=== PATIENT | female | born 1980 | race Caucasian/White ===

== ENCOUNTER 2019-06-29 16:52 | Day surgery (SDC) | payer SELFPAY ==
[2019-06-29 17:25] VITALS: BP 107/61; TEMP 97.8; BMI 39.6
[2019-06-29] MEDS ORDERED: hydrALAZINE 20 MG/ML VIAL SLOW IVP PRN (18:19)
[2019-06-29 18:49] LABS: Bacteria/HPF None Seen HPF (None Seen); Bilirubin Negative (Negative); Blood, Urine Negative (Negative); Clarity Clear (Clear); Glucose, Urine (Dipstick) Normal (Negative); Leukocyte Negative Leu/uL (Negative); Nitrite Negative (Negative); Protein, Urine (Dipstick) Negative (Neg-Trace); RBC/HPF 0-3 HPF (0-3); Squamous Epithelial 0-3 HPF (0-3); Urobilinogen Normal mg/dL (Less than 2); WBC/HPF 0-3 HPF (0-3)
--- NOTE | 2019-06-29 19:03 | PRG ---
DATE OF SERVICE: 06/29/2019 PRIMARY OB: Garret Waldrop MD CHIEF COMPLAINT: Pelvic pain and vaginal discharge. HISTORY OF PRESENT ILLNESS: The patient is a 39-year-old G6, P2 female with an intrauterine at 27 weeks and 5 days presenting to Labor and Delivery with complaints of a mucousy discharge and crampiness that she has been feeling since about 2 o'clock this afternoon. She reports that the contractions have been about every 12 minutes apart feeling in the front and later on in the back also. She reports that this these pains are exacerbated with activity and movement such as getting up and getting out of the car, but she also reports that she is feeling these pains at rest. The patient denies any fever, cough, headache, chest pain, shortness of breath, nausea, vomiting, diarrhea, constipation, hip problems, knee problems, or muscle weakness. She denies any vaginal bleeding. Her leakage of fluid other than the mucousy discharge she had earlier today when she wiped and denies urinary urgency. The patient does report constipation on occasion. PAST MEDICAL HISTORY: 1. The patient has a history of grand mal seizures and has been off medications since the . 2. Asthma. Has required albuterol once this . PAST SURGICAL HISTORY: Cholecystectomy in 2017. SOCIAL HISTORY: Denies drug, alcohol, or tobacco use. She does report that she is a former alcoholic. ALLERGIES: PREDNISONE, BACTRIM. MEDICATIONS: 1. Albuterol inhaler p.r.n. 2. vitamins. She has stopped taking Keppra when she found out that she was . OB LABS: Unavailable at time of dictation. REVIEW OF SYSTEMS: Per HPI. PHYSICAL EXAMINATION: VITAL SIGNS: Blood pressure 107/61, heart rate of 75, respiratory rate 18, temperature 97.8. GENERAL: She appears to be in no acute distress. She is alert, oriented, cooperative, and pleasant to interact with. HEENT: Head is normocephalic and atraumatic. LUNGS: Clear to auscultation bilaterally. HEART: Has a regular rate and rhythm. ABDOMEN: Gravid and soft. PELVIC: She does have some tenderness in her left lower groin pelvic region with deviation of the uterus to the right. She also has some suprapubic tenderness also associated with palpation. Vulva is without masses, lesions, or erythema. Vagina is moist. Cervix is visibly closed. She has no evidence of pulling on Valsalva or cough. fibronectin and VP3 were collected. Cervix is closed digitally. heart tracing shows the fetus is at baseline in the 140s with moderate long-term variability, positive 15 x 15 accelerations. Tocometer shows maybe some irritability. Difficult to assess due to the patient's habitus. Pending is fibronectin, urinalysis, and VP3. ASSESSMENT AND PLAN: The patient is a 39-year-old female with an intrauterine at 27 weeks and 5 days with no evidence of labor at this time. Fetus has a category 1 tracing and reactive NST. We are awaiting lab results for possible urinary tract infection or vaginal infection. Anticipate a negative fibronectin. Once these results become available, treat accordingly and discharge home with instructions to follow up with her primary OB as scheduled. Job ID: [id number]
[2019-06-29 19:08] LABS: FFN Internal QC Analyzer PASS (PASS); FFN Internal QC Cassette PASS (PASS); Fetal Fibronectin Negative (Negative)
== END 2019-06-29 19:50 | disposition home or self-care (01) ==
LOC: L&D/OP 16:52
PROVIDERS: ATTEND Obstetrics & Gynecology
DX: O23.592 Infection of other part of genital tract in pregnancy, second trimester (principal); B96.89 Other specified bacterial agents as the cause of diseases classified elsewhere; O99.512 Diseases of the respiratory system complicating pregnancy, second trimester; J45.909 Unspecified asthma, uncomplicated; O99.352 Diseases of the nervous system complicating pregnancy, second trimester; G40.409 Other generalized epilepsy and epileptic syndromes, not intractable, without status epilepticus; O09.522 Supervision of elderly multigravida, second trimester; Z3A.27 27 weeks gestation of pregnancy; Z88.1 Allergy status to other antibiotic agents; Z88.2 Allergy status to sulfonamides; Z88.8 Allergy status to other drugs, medicaments and biological substances
CPT/HCPCS: 81001; 82731; 87480; 87510; 87660; 99285

== ENCOUNTER 2019-08-11 20:37 | Day surgery (SDC) | payer OTHER ==
[2019-08-11 21:07] VITALS: BMI 40.4
[2019-08-11] MEDS ORDERED: hydrALAZINE 20 MG/ML VIAL SLOW IVP PRN (22:46)
--- NOTE | 2019-08-11 22:48 | PDOC.LDHP ---
Labor and Delivery H&P Chief complaint: other (Low back pain) HPI: Patient of Dr Palma ULRICH 33 weeks 6 days Here for LBP, no UTI sxs, no CTX 39 yo [id number] at 33 weeks 6 days with above complaint. No LOF, no VB, also with some bilateral vaginal pressure. NO UTI sxs, no fevers. Review of Systems: complete ROS performed as as per HPI Current gestational age (weeks): 33 (6 days) Dating criteria: last menstrual period Grav: 6 Para: 2 OB History Details: HX "" delivery per record. Current complications: none Abnormal US findings: No Past Medical History: ASTHMA Current medications: pre- vitamins Previous surgical history: cholecystectomy Allergies/Adverse Reactions: Allergies Allergy/AdvReac Type Severity Reaction Status Date / Time prednisone Allergy Swollen Verified 06/29/19 17:17 Lips sulfamethoxazole Allergy Swollen Verified 06/29/19 17:17 [From Bactrim] Lips trimethoprim [From Bactrim] Allergy Swollen Verified 06/29/19 17:17 Lips Social history: none - Physical Exam Vital signs reviewed and normal: yes (124/72) General: NAD Heart: RRR Lungs: CTAB Abdomen: gravid Extremeties: no edema FHT: category 1 [place] contractions every: none - Assessment 33 weeks 6 days, AMA patient with no clinical sxs of true PTL. No UTI sxs - Plan Plan: observation in L&D (NST recative. Check CX. If no evidence labor, outpatient follow up allowed)
== END 2019-08-11 23:10 | disposition home or self-care (01) ==
LOC: L&D/OP 20:37
PROVIDERS: ATTEND Obstetrics & Gynecology
DX: O99.89 Other specified diseases and conditions complicating pregnancy, childbirth and the puerperium (principal); M54.5 Low back pain; R10.2 Pelvic and perineal pain; O99.513 Diseases of the respiratory system complicating pregnancy, third trimester; J45.909 Unspecified asthma, uncomplicated; O09.213 Supervision of pregnancy with history of pre-term labor, third trimester; O09.523 Supervision of elderly multigravida, third trimester; Z3A.33 33 weeks gestation of pregnancy; Z88.2 Allergy status to sulfonamides; Z88.8 Allergy status to other drugs, medicaments and biological substances

== ENCOUNTER 2019-08-22 20:53 | Day surgery (SDC) | payer OTHER ==
[2019-08-22 21:11] VITALS: BMI 41.5
[2019-08-22] MEDS ORDERED: hydrALAZINE 20 MG/ML VIAL SLOW IVP PRN (21:25)
--- NOTE | 2019-08-23 02:07 | SS ---
DATE OF ADMISSION: 08/22/2019 DATE OF DISCHARGE: 08/22/2019 REGULAR PHYSICIAN: Garret Waldrop MD EVALUATING PHYSICIAN: Daron Greene MD CHIEF COMPLAINT: Contractions. HISTORY OF PRESENT ILLNESS: Ms. Mortensen is a 39-year-old white G5, P2 with an estimated date of confinement of 09/23/2019, who presents complaining of contractions throughout the day. She denies ruptured membranes or vaginal bleeding. Her care has been with Dr. Waldrop, and history has been reportedly uncomplicated. PAST OBSTETRICAL HISTORY: Includes 2 vaginal deliveries, both at 36 to 37 weeks. PAST MEDICAL HISTORY: Includes seizure disorder. Last seizure over one year ago and asthma. PAST SURGICAL HISTORY: Cholecystectomy. CURRENT MEDICATIONS: vitamins. ALLERGIES: BACTRIM AND PREDNISONE. SOCIAL HISTORY: Denies tobacco, alcohol, or drug use. FAMILY HISTORY: Unremarkable. REVIEW OF SYSTEMS: Denies nausea, vomiting, fever, chills, ruptured membranes, or vaginal bleeding. PHYSICAL EXAMINATION: VITAL SIGNS: In triage, her vital signs are stable. She is afebrile. GENERAL: She is in no acute distress. ABDOMEN: Soft, nontender, and gravid. Pelvic examination by Labor nurse shows the cervix to be 1 cm long and uneffaced. heart rate tracing is stable. No decelerations are seen. No regular contractions are noted. ASSESSMENT: 1. 35- and 3/7th-week intrauterine . 2. No evidence of active labor at this time. PLAN: The patient will be dismissed to home. Labor precautions were reviewed with her in detail. She states she has a followup appointment with Dr. Waldrop next week. Job ID: [id number]
== END 2019-08-22 22:10 | disposition home or self-care (01) ==
LOC: L&D/OP 20:53
PROVIDERS: ATTEND Obstetrics & Gynecology
DX: O47.03 False labor before 37 completed weeks of gestation, third trimester (principal); O09.523 Supervision of elderly multigravida, third trimester; O99.513 Diseases of the respiratory system complicating pregnancy, third trimester; J45.909 Unspecified asthma, uncomplicated; O99.353 Diseases of the nervous system complicating pregnancy, third trimester; G40.909 Epilepsy, unspecified, not intractable, without status epilepticus; Z3A.35 35 weeks gestation of pregnancy; Z88.2 Allergy status to sulfonamides; Z88.8 Allergy status to other drugs, medicaments and biological substances

== ENCOUNTER 2019-09-11 05:05 | Inpatient (IN) | payer OTHER ==
[2019-09-11 05:42] VITALS: BMI 41.3
[2019-09-11 06:05] LABS: Amnisure Test RUPTURE DETECTED (No Rupture)
[2019-09-11 06:06] LABS: Amnisure Internal Control QC ACCEPTABLE (ACCEPTABLE)
[2019-09-11] MEDS ORDERED: Ondansetron PF 4 MG/2 ML Vial IVP PRN ×2 (06:31→09:52)
[2019-09-11] MEDS ORDERED: Promethazine HCl 25 MG/ML VIAL IM PRN ×2 (06:31→09:52)
[2019-09-11] MEDS ORDERED: hydrALAZINE 20 MG/ML VIAL SLOW IVP PRN ×2 (06:31→09:52)
[2019-09-11] MEDS ORDERED: Lidocaine 1% (PF) 30 ML VIAL SC PRN (06:31)
[2019-09-11] MEDS ORDERED: Acetaminophen 500 MG TAB PO PRN (06:31)
[2019-09-11] MEDS ORDERED: NS / Oxytocin 40 units/1000ml 1,000 ML IV PRN (06:31)
--- NOTE | 2019-09-11 06:42 | PDOC.FPROB ---
FMR OB H&P: Medications - Current Home Medications: Medication Instructions Recorded Confirmed Type Comb No.42/Folic Acid 1 tab PO DAILY 06/29/19 08/22/19 History [Prena1 Chewable Tablet] Allergies/Adverse Reactions: Allergies Allergy/AdvReac Type Severity Reaction Status Date / Time prednisone Allergy Swollen Verified 06/29/19 17:17 Lips sulfamethoxazole Allergy Swollen Verified 06/29/19 17:17 [From Bactrim] Lips trimethoprim [From Bactrim] Allergy Swollen Verified 06/29/19 17:17 Lips FMR OB H&P: Results - Labs Lab results: Laboratory Results - last 24 hr 09/11/19 05:50 Amnio Swab Test RUPTURE DETECTED H FMR OB H&P: A/P - Problem List (1) Current Visit: Yes Status: Acute Discussion: Date/Time: 09/11/19 06 PCP: Palma HPI: at 38.2 wks patient presents for SROM at 0300. She states she was in her bed and all the sudden there was a puddle on the bed, she thought she wet herself but the fluid kept coming so she came in for eval. She states on her way in the contractions were about every 3 minutes apart while she was in the car, now about 5 minutes apart. She affirms movement, denies bleeding. Denies LAIRD, visual changes, SOB, or swelling. History: OB hx: 2 misscarriages, 1 twin delivery PMH: Seizure disorder, ASthma PSH: cholecystectomy Meds: PNV All: prednisone, bactrim Soc Hx: denies smoking, alcohol, drugs Fam Hx: denies downs, congenital defects GBS: + Blood type: A+ Ab screen: neg HIV: neg RPR: neg Hep B: neg Rubella: immune REVIEW OF SYSTEMS: Gen: no fever, chills, or sweats Neuro: no numbness/tingling, no weakness, denies headache ENT: denies congestion Eyes: no visual changes Resp: denies cough, no production, no SOB, no wheeze Card: denies chest pain, no palpitations GI: denies nausea, vomiting, diarrhea : no dysuria, no hematuria Skin: no rash, no erythema Psych: denies hx anxiety/depression Vitals: T: 98.5 R: 18 BP: 118/76 P:74 at: 98% on RA PHYSICAL EXAMINATION: General: NAD, alert and oriented x3 HEENT: EOMI, normal sclera Neck: Supple. Full ROM. Heart/Cardiovascular System: RRR, Cap refill < 3 seconds, no rub, no murmur Lungs/Respiratory System: clear to auscultation bilaterally. No increased work of breathing. Room air. Abdomen/Gastro-Intestinal System: no abdominal tenderness, normal bowel sounds, Gravid Extremities: Warm extremities. No cyanosis or edema. Neuro: No gross deficits appreciated Psychiatry: Awake, Alert and cooperative with exam Skin: no lesions, no rashes Musculoskeletal: Full ROM A/P: This is a 39 yo at 38.2 wks here for SROM FHT: 120 baseline, mod variability, no decels, accels present [place]: cxns q5-7 # -+ pooling on spec exam, + amnisure -GBS+, ppx started -Desires epidural -Admit for expectant mgmt. # Seizure disorder -Stopped keppra on her own before -Last seizure 1 year ago # Hx of asthma -No inhaler during , avoid hemabate Case discussed with Dr. Zhu, Care handed off to PCP
[2019-09-11] MEDS ORDERED: Lactated Ringer's 1,000 ML IV SCH (06:45)
[2019-09-11] MEDS ORDERED: Penicillin G Potassium 5 MILL.UNITS in Sodium Chloride 0.9% 100 ML IVPB SCH (06:45)
[2019-09-11] MEDS ORDERED: Butorphanol Tartrate 1 MG/ML VIAL ONE (07:32)
[2019-09-11] MEDS ORDERED: Butorphanol Tartrate 1 MG/ML VIAL SLOW IVP PRN (07:49)
[2019-09-11 07:54] LABS: Hemoglobin 12.1 g/dL (12.0-16.0); Mean Corpuscular HGB CONC 34.3 g/dL (32.0-36.0); Mean Corpuscular Hemoglobin 28.6 pg (27.0-31.0); Mean Corpuscular Volume 83.3 fL (78.0-98.0); Mean Platelet Volume 8.4 fL (7.4-10.4); Platelet Count 277 thou/uL (130-400); RBC Distribution Width 13.3 % (11.5-14.5); Red Blood Cell (RBC) Count 4.23 mill/uL (4.20-5.40); White Blood Cell (WBC) Count 10.4 thou/uL (4.8-10.8)
[2019-09-11] MEDS ORDERED: Fentanyl 4 mcg/Bup 0.1% Cadd 100 ML ONE (08:01)
[2019-09-11 08:08] LABS: HBSAg Index 0.13 S/CO (0-0.99); Hep B Surf Ag Non-Reactive S/CO (NonReactive); Syphilis Antibody Nonreactive (Nonreactive); Syphilis Antibody Index 0.05 S/CO (<1.00 Non-Reactive)
[2019-09-11] MEDS ORDERED: Fentanyl 100 MCG/2 ML VIAL ONE (08:09)
[2019-09-11] MEDS ORDERED: Bupivacaine/Epinephrine 0.25% 30 ML VIAL ONE (09:09)
[2019-09-11] MEDS ORDERED: Preparation H Ointment 28 GM TUBE PR PRN (09:52)
[2019-09-11] MEDS ORDERED: Misoprostol 200 MCG TAB VAG PRN (09:52)
[2019-09-11] MEDS ORDERED: Adacel (T-DAP) 0.5 ML SYRINGE IM ONE (09:52)
[2019-09-11] MEDS ORDERED: Methylergonovine 0.2 MG/ML VIAL IM PRN (09:52)
[2019-09-11] MEDS ORDERED: Zolpidem Tartrate 5 MG TAB PO PRN (09:52)
[2019-09-11] MEDS ORDERED: Lanolin Ointment 7 GM TUBE TOP PRN (09:52)
[2019-09-11] MEDS ORDERED: HYDROcodone/Acetaminophen 5/325 mg Tablet PO PRN (09:52)
[2019-09-11] MEDS ORDERED: Bisacodyl 10 MG SUPP PR PRN (09:52)
[2019-09-11] MEDS ORDERED: Varicella virus, LIVE 0.5 ML VIAL SC ONE (09:52)
[2019-09-11] MEDS ORDERED: Milk Of Magnesia 30 ML UDCUP PO PRN (09:52)
[2019-09-11] MEDS ORDERED: diphenhydrAMINE 25 MG CAP PO PRN (09:52)
[2019-09-11] MEDS ORDERED: Benzocaine-Menthol 82.5 ML CAN TOP PRN (09:52)
[2019-09-11] MEDS ORDERED: levETIRAcetam 500 MG TAB PO SCH (10:00)
[2019-09-11] MEDS ORDERED: NS / Oxytocin 40 units/1000ml 1,000 ML IV SCH (10:00)
[2019-09-11] MEDS ORDERED: Penicillin G 2.5 MILL.units 2.5 MILL.UNITS in Premix Bag 1 BAG IVPB SCH (10:45)
[2019-09-11] MEDS: levETIRAcetam 500 MG TAB PO SCH ×4 (11:19→21:25)
[2019-09-11] MEDS: Ibuprofen 800 MG TAB PO SCH ×2 (16:10→22:22)
[2019-09-11] MEDS ORDERED: Measles/Mumps/Rubella 10 MCG/0.5 ML VIAL SC ONE (18:00)
[2019-09-11] MEDS: Ferrous Sulfate 325 MG TAB PO SCH (18:59)
[2019-09-11] MEDS: Docusate Calcium (SURFAK) 240 MG CAP PO SCH (21:19)
[2019-09-11] MEDS: HYDROcodone/Acetaminophen 5/325 mg Tablet PO PRN (23:56)
[2019-09-12] MEDS: Ibuprofen 800 MG TAB PO SCH ×3 (06:11→20:31)
[2019-09-12] MEDS: HYDROcodone/Acetaminophen 5/325 mg Tablet PO PRN (06:11)
[2019-09-12 06:17] LABS: Hemoglobin 11.2 g/dL (12.0-16.0); Mean Corpuscular HGB CONC 34.6 g/dL (32.0-36.0); Mean Corpuscular Hemoglobin 28.7 pg (27.0-31.0); Mean Corpuscular Volume 83.1 fL (78.0-98.0); Mean Platelet Volume 8.6 fL (7.4-10.4); Platelet Count 248 thou/uL (130-400); RBC Distribution Width 13.4 % (11.5-14.5); Red Blood Cell (RBC) Count 3.91 mill/uL (4.20-5.40); White Blood Cell (WBC) Count 9.9 thou/uL (4.8-10.8)
[2019-09-12] MEDS: Docusate Calcium (SURFAK) 240 MG CAP PO SCH ×2 (07:58→20:31)
[2019-09-12] MEDS: Prenatal Vitamin 1 TAB PO SCH (07:58)
[2019-09-12] MEDS: levETIRAcetam 500 MG TAB PO SCH ×2 (07:58→20:31)
[2019-09-12] MEDS: Ferrous Sulfate 325 MG TAB PO SCH ×2 (10:28→19:17)
[2019-09-13] MEDS: Ibuprofen 800 MG TAB PO SCH ×2 (05:55→14:06)
--- NOTE | 2019-09-13 08:08 | DN ---
DATE OF PROCEDURE: 09/11/2019 TIME OF SERVICE: At 9:34 [employer] Daylight Savings Time. PREOPERATIVE DIAGNOSIS: Intrauterine at 38 weeks and 2 days with spontaneous onset of labor and spontaneous rupture of membranes. POSTOPERATIVE DIAGNOSIS: Intrauterine at 38 weeks and 2 days with spontaneous onset of labor and spontaneous rupture of membranes. PROCEDURE: Vacuum-assisted vaginal delivery over intact perineum. FINDINGS: Viable male weighing 3006 g or 6 pounds 10 ounces. Apgars of 8 and 9. QUANTITATIVE BLOOD LOSS: 125. COMPLICATIONS: Bradycardia encountered when the patient began pushing. PROCEDURE IN DETAIL: The patient presented to [facility] where she was admitted to the labor and delivery service. The patient underwent a normal and uneventful labor with normal cervical dilatation until she was found to be completely dilated. She was then allowed to push and was able to bring the baby down. bradycardia was encountered during the 2nd stage of labor, and a vacuum system was usedto deliver the head. This was accomplished over 2 contractions. Vacuum was than disarticulated, and the rest of the body was delivered without incident. Once the head delivered in occiput anterior position, the shoulders followed spontaneously along with the rest of the baby's body. Once out the baby's mouth and nose were bulb suctioned. The cord was clamped and cut and baby was handed to waiting attendants. Cord blood was collected. Gentle fundal massage was performed and the placenta delivered intact without problems. Hemostasis was assured. Quantitative blood loss was calculated. Inspection of the cervix, vaginal vault, and perineum did not reveal any lacerations needing suturing. Once again, hemostasis was within normal limits and the patient was allowed to recover in the labor and delivery room. Baby went to nursery. Job ID: [id number] [facility]
[2019-09-13 08:43] VITALS: BP 141/74; TEMP 98.4
[2019-09-13] MEDS: Docusate Calcium (SURFAK) 240 MG CAP PO SCH (08:44)
[2019-09-13] MEDS: Prenatal Vitamin 1 TAB PO SCH (08:44)
[2019-09-13] MEDS: levETIRAcetam 500 MG TAB PO SCH (08:45)
[2019-09-13] MEDS: HYDROcodone/Acetaminophen 5/325 mg Tablet PO PRN (08:45)
[2019-09-13] MEDS: Ferrous Sulfate 325 MG TAB PO SCH (08:47)
== END 2019-09-13 14:13 | disposition home or self-care (01) | DRG 807 ==
LOC: L&D/OP 05:05 → L&D 06:32 → 3SW 12:54
PROVIDERS: ADMIT Obstetrics & Gynecology; ATTEND Obstetrics & Gynecology
PROC: 10D07Z6 Extraction of Products of Conception, Vacuum, Via Natural or Artificial Opening (ICD-10-PCS; principal; 2019-09-11)
DX: O99.354 Diseases of the nervous system complicating childbirth (principal); Z37.0 Single live birth; Z3A.38 38 weeks gestation of pregnancy; G40.909 Epilepsy, unspecified, not intractable, without status epilepticus; Z88.2 Allergy status to sulfonamides; Z88.8 Allergy status to other drugs, medicaments and biological substances; O76 Abnormality in fetal heart rate and rhythm complicating labor and delivery
CPT/HCPCS: 36415; 51702; 84112; 85027; 86780; 86850; 86900; 86901; 87340; 99285; J0595; J2540; J3010; J3490